=== PATIENT | female | born 1975 | race African-American/Black ===

== ENCOUNTER 2022-09-17 07:02 | Day surgery (SDC) | payer OTHER ==
[~2022-09-17] VITALS: Ht 175.3 cm; Wt 25.9 kg
[2022-09-17] MEDS ORDERED: fentaNYL citrate 0.05 MG/ML VIAL ONE (08:38)
[2022-09-17] MEDS ORDERED: LIDOCAINE 2% 100 MG/5 ML UJET TP ONE (08:38)
[2022-09-17] MEDS ORDERED: fentaNYL citrate 0.05 MG/ML VIAL IVP ONE (09:45)
== END 2022-09-17 10:15 | disposition home or self-care (01) ==
LOC: MDS 07:02 → MMU 07:03 → MDS 10:13
PROVIDERS: ATTEND Internal Medicine Gastroenterology
DX: Z12.11 Encounter for screening for malignant neoplasm of colon (principal); K57.30 Diverticulosis of large intestine without perforation or abscess without bleeding; F17.210 Nicotine dependence, cigarettes, uncomplicated; Z90.89 Acquired absence of other organs
CPT/HCPCS: 45378; J3010